=== PATIENT | female | born 1960 | race Two or more races ===

== ENCOUNTER 2020-09-23 12:31 | Day surgery (SDC) | payer OTHER ==
[~2020-09-23] VITALS: Ht 157.5 cm; Wt 77.2 kg
[~2020-09-23 12:31] MED LIST: BUPR150ER PO; FLONASE SENSIM5.9 M1; HYDR10EL60 PO; ZOLOFT25 MG PO
[2020-09-23] MEDS ORDERED: SERT25 (13:37)
[2020-09-23] MEDS ORDERED: ATOR20 (13:38)
[2020-09-23] MEDS ORDERED: METF500 (13:39)
[2020-09-23] MEDS ORDERED: MELO7.5 (13:39)
--- NOTE | 2020-09-23 15:00 | NUR ---
09/23/20 1500 TERESA MUHAMMAD 56 AND HERSON 18,19,20 UP TO THE 20 BOTH USED
== END 2020-09-23 15:29 | disposition home or self-care (01) ==
LOC: ORSCSDS 12:31
PROVIDERS: Internal Medicine Gastroenterology
PROC: 0DB58ZX Excision of Esophagus, Via Natural or Artificial Opening Endoscopic, Diagnostic (ICD-10-PCS; principal; 2020-09-23 13:45)
PROC: 0DB78ZX Excision of Stomach, Pylorus, Via Natural or Artificial Opening Endoscopic, Diagnostic (ICD-10-PCS; principal; 2020-09-23 13:45)
PROC: 0D758ZZ Dilation of Esophagus, Via Natural or Artificial Opening Endoscopic (ICD-10-PCS; principal; 2020-09-23 13:45)
DX: R13.10 Dysphagia, unspecified (principal); K21.9 Gastro-esophageal reflux disease without esophagitis; K22.2 Esophageal obstruction; K29.70 Gastritis, unspecified, without bleeding; F17.210 Nicotine dependence, cigarettes, uncomplicated; Z79.899 Other long term (current) drug therapy
CPT/HCPCS: 82947; 88305; 88342; C1726; J2704; J7120

== ENCOUNTER 2020-12-18 10:43 | Day surgery (SDC) | payer OTHER ==
[~2020-12-18] VITALS: Ht 160 cm; Wt 73.9 kg
[~2020-12-18 10:43] MED LIST changes: +ATOR20; +MELO7.5; +METF500; +SERT25
== END 2020-12-18 12:27 | disposition home or self-care (01) ==
LOC: ORSCSDS 10:43
PROVIDERS: Internal Medicine Gastroenterology
PROC: 0DBH8ZX Excision of Cecum, Via Natural or Artificial Opening Endoscopic, Diagnostic (ICD-10-PCS; principal; 2020-12-18 12:15)
PROC: 0DBL8ZX Excision of Transverse Colon, Via Natural or Artificial Opening Endoscopic, Diagnostic (ICD-10-PCS; principal; 2020-12-18 12:15)
PROC: 0DBN8ZX Excision of Sigmoid Colon, Via Natural or Artificial Opening Endoscopic, Diagnostic (ICD-10-PCS; principal; 2020-12-18 12:15)
DX: Z12.11 Encounter for screening for malignant neoplasm of colon (principal); D12.5 Benign neoplasm of sigmoid colon; D12.3 Benign neoplasm of transverse colon; D12.0 Benign neoplasm of cecum; K64.8 Other hemorrhoids; F17.210 Nicotine dependence, cigarettes, uncomplicated; K21.9 Gastro-esophageal reflux disease without esophagitis; Z79.899 Other long term (current) drug therapy
CPT/HCPCS: 82947; 88305; J2704; J7120

== ENCOUNTER 2024-04-15 11:38 | Day surgery (SDC) | payer OTHER ==
[~2024-04-15] VITALS: Ht 160 cm; Wt 77.1 kg
[~2024-04-15 11:38] MED LIST changes: +Lactated Ringer's 1,000 ML IV ONE
[2024-04-15] MEDS ORDERED: Lactated Ringer's 1,000 ML IV ONE (13:47)
[2024-04-15] MEDS ORDERED: propofoL 50 ML IV ONE (15:36)
--- NOTE | 2024-04-15 15:38 | NUR ---
04/15/24 1538 TERESA MUHAMMAD EXAM DELAYED 2H D/T PT DRINKING WATER IN WAITING ROOM.
[2024-04-15 16:46] VITALS: BP 106/74
== END 2024-04-15 16:45 | disposition home or self-care (01) ==
LOC: ORSCSDS 11:38
PROVIDERS: Internal Medicine Gastroenterology
PROC: 0DJD8ZZ Inspection of Lower Intestinal Tract, Via Natural or Artificial Opening Endoscopic (ICD-10-PCS; principal; 2024-04-15 13:00)
DX: Z12.11 Encounter for screening for malignant neoplasm of colon (principal); Z86.0101 Personal history of adenomatous and serrated colon polyps
CPT/HCPCS: J2704; J7120